=== PATIENT | female | born 1970 | race Caucasian/White ===

== ENCOUNTER 2017-05-29 15:50 | Inpatient (IN) | payer SELFPAY ==
[~2017-05-29] VITALS: Ht 160 cm; Wt 112.0 kg
[2017-05-29] MEDS ORDERED: ALBUTEROL FS 2.5 MG/3 ML VIAL.NEB ONE (16:07)
--- NOTE | 2017-05-29 16:10 | NUR ---
BBRA FROM URGENT CARE FOR SOB AND FLU LIKE SYMPTOMS X 5 DAYS. SATING AT 70'S RA. SEEN BY MD FOR EVAL. OTHER VSS. PT AAOX4. SAFETY AND COMFORT MEASURES PROVIDED. WILL MONITOR.
[2017-05-29] MEDS ORDERED: methylPREDNISolone SOD SUCC 125 MG/2ML VIAL ONE (16:23)
[2017-05-29] MEDS ORDERED: methylPREDNISolone SOD SUCC 125 MG/2ML VIAL IV ONE (16:30)
[2017-05-29] MEDS ORDERED: ALBUTEROL FS 2.5 MG/3 ML VIAL.NEB CONTNEB ONE (16:30)
[2017-05-29] MEDS ORDERED: IV NS 0.9% 1,000 ML BAG IV ONE (16:30)
--- NOTE | 2017-05-29 16:30 | NUR ---
RT AT BS. IV ACCESS STARTED. BLOOD DRAWN FOR LABS.
[2017-05-29 16:35] LABS: BASOPHILS % (AUTO) 0.5 % (0.0-2.0); HEMATOCRIT 44 % (33-45); HEMOGLOBIN 14.9 g/dL (11.5-14.8); LYMPHOCYTES # (AUTO) 0.7 /CMM (0.8-4.8); LYMPHOCYTES % (AUTO) 18.2 % (20.0-44.0); MEAN CORPUSCULAR HEMOGLOBIN 28 PG (26.0-33.0); MEAN CORPUSCULAR HGB CONC 34 g/dl (31.0-36.0); MEAN CORPUSCULAR VOLUME 83 fL (82-100); MONOCYTES # (AUTO) 0.2 /CMM (0.1-1.30); MONOCYTES % (AUTO) 6.7 % (2.0-12.0); NEUTROPHILS # (AUTO) 2.7 /CMM (1.8-8.9); NEUTROPHILS % (AUTO) 74.6 % (43.0-81.0); PLATELET COUNT (AUTO) 220 /CMM (150-450); RED BLOOD CELL COUNT(AUTO) 5.27 MIL/uL (4.0-5.2); WHITE BLOOD COUNT (AUTO) 3.7 K/uL (4.3-11.0)
[2017-05-29 16:54] LABS: ALBUMIN 3.4 g/dL (3.4-5.0); BILIRUBIN,DIRECT 0.1 mg/dL (0.0-0.2); BILIRUBIN,TOTAL 0.6 mg/dL (0.2-1.0); CALCIUM, SERUM 8.8 mg/dL (8.5-10.1); CREATININE 0.9 mg/dL (0.6-1.3); POTASSIUM 3.8 mmol/L (3.5-5.1); TOTAL PROTEIN, SERUM 8.7 g/dL (6.4-8.2)
[2017-05-29 16:57] LABS: INR 0.96 (0.87-1.13)
[2017-05-29 16:58] LABS: ABG PCO2 33.3 mmHg (35.0-45.0); ABG PO2 58.5 mmHg (75.0-100.0); AaDO2 188.4 mmHg; COHb 1.5 % (0.5-1.5); O2Hb 89.6 % (94.0-97.0); SITE, ABG Right Radial
[2017-05-29] MEDS ORDERED: CEFTRIAXONE 1GM BAG (ER ONLY) 50 ML IV ONE (17:00)
--- NOTE | 2017-05-29 17:13 | NUR ---
CALLED NURSING SUP. FOR TELE BED
--- NOTE | 2017-05-29 17:28 | NUR ---
CALLED , LEFT MESSAGE ON VOICEMAIL
--- NOTE | 2017-05-29 18:01 | NUR ---
TELE 103
--- NOTE | 2017-05-29 18:12 | NUR ---
REPORT GIVEN TO NILESH PARRA FOR [facility] TELE 103
--- NOTE | 2017-05-29 18:20 | NUR ---
RECEIVED REPORT FROM SHINGLE BOLT CUTTER.
--- NOTE | 2017-05-29 19:06 | NUR ---
DANITZA PAGED, ADITI RG ANALYSIS MANAGER
[2017-05-29 19:30] VITALS: BP 126/90
--- NOTE | 2017-05-29 19:30 | NUR ---
RAIL DIRECTOR OPENING NOTES: RECEIVED PT FROM EMERGENCY DPT. PT IS A/OX4. PT TO BE PLACED ON TELE BOX. PT PLACED ON 8LPM VIA MASK AND IS TOLERATING WELL. NO S/S OF DISTRESS NOTED AT THIS TIME. PT HAS IV ON R FOREARM #20G AND IS PATENT AND INTACT. PT TO BE STARTED ON IV FLUIDS. CALL LIGHT WITHIN PT'S REACH. PT ON SEMI-OCHOA'S POSITION. BED KEPT IN LOW, LOCKED POSITION, AND SIDE RAILS X2UP. WILL CONTINUE TO MONITOR PT.
--- NOTE | 2017-05-29 19:43 | NUR ---
TRANSFERRED PATIENT VIA ALS PROTOCOL, NO INCIDENT NOTED.
[2017-05-29] MEDS ORDERED: MAG HYDROX/AL HYDROX/SIMETH 30 ML UDC PO PRN (20:00)
[2017-05-29] MEDS ORDERED: Z GUARD REMEDY 2 OZ OINT TP PRN (20:00)
[2017-05-29] MEDS ORDERED: ONDANSETRON HCL/PF 4 MG/2 ML VIAL IVP PRN (20:00)
[2017-05-29] MEDS ORDERED: ACETAMINOPHEN 325 MG TABLET PO PRN (20:00)
[2017-05-29] MEDS: IV NS 0.9% 1,000 ML IV PRN (20:15)
[2017-05-29] MEDS: AZITHROMYCIN 500 MG in IV D5W 250 ML IV SCH (20:38)
[2017-05-29] MEDS: ENOXAPARIN SODIUM 40 MG/0.4 ML DISP.SYRIN SQ SCH (20:39)
--- NOTE | 2017-05-29 23:08 | NUR ---
CLOTH WORKER NOTES: TEACHER OF THE DEAF/HARD OF HEARING ARCENIO AT BEDSIDE.
[2017-05-29] MEDS ORDERED: IPRATROPIUM NEB FS 0.5 MG/2.5 ML AMPUL.NEB ONE (23:13)
[2017-05-29] MEDS ORDERED: ALBUTEROL FS 2.5 MG/0.5 ML VIAL.NEB ONE (23:13)
[2017-05-29] MEDS ORDERED: IPRATROPIUM NEB FS 0.5 MG/2.5 ML AMPUL.NEB NEB SCH (23:30)
[2017-05-29] MEDS ORDERED: ALBUTEROL FS 2.5 MG/0.5 ML VIAL.NEB NEB SCH (23:30)
[2017-05-30] VITALS: BP 113/71
[2017-05-30 00:25] LABS: ABG BASE EXCESS -2.3 mmol/L; ABG OXYGEN SATURATION 89.1 % (92.0-98.5); ABG PCO2 34.6 mmHg (35.0-45.0); ABG PH 7.413 (7.350-7.450); ABG PO2 56.9 mmHg (75.0-100.0); AaDO2 621.5 mmHg; COHb 0.4 % (0.5-1.5); MetHb 0.1 % (0.0-1.5); O2Hb 88.7 % (94.0-97.0); SITE, ABG Right Radial; VENT MODE, BG NRB
--- NOTE | 2017-05-30 00:31 | NUR ---
TRAY PACKER NOTES: SPOKE TO DR. ADITI RG AND HE SAID TO ORDER BMP STAT. TO NOTIFY HIM ABOUT RESULTS ONCCE THEY SHOW UP. Addendum: 05/30/17 at 0043 by HILLARY SPANGLER RN BNP
--- NOTE | 2017-05-30 00:47 | NUR ---
SENIOR BENEFITS ANALYST NOTES: URINE COLLECTED. TO BE COLLECTED BY LAB.
[2017-05-30] MEDS: ZOLPIDEM TARTRATE 5 MG TABLET PO PRN (00:54)
--- NOTE | 2017-05-30 00:55 | NUR ---
LAYOUT MAN NOTES: PT REQUESTED FOR SLEEPING PILL. PT WAS ADMINISTERED AMBIEN 5MG PO.
--- NOTE | 2017-05-30 01:30 | NUR ---
BIPAP SUGGESTED TO NILESH CAAL DUE TO POST ABG RESULTS. NO NEW ORDERS PER DR ADITI RG. WILL CONTINUE TO MONITOR.
--- NOTE | 2017-05-30 01:42 | NUR ---
PHERESIS SPECIALIST NOTES: NOTIFIED BNP RESULT TO DR. RG AND HE ORDERED ONE DOSE OF LASIX 40MG IVP.
[2017-05-30] MEDS ORDERED: FUROSEMIDE 40 MG/4 ML VIAL IV STA (01:43)
[2017-05-30] MEDS ORDERED: FUROSEMIDE 40 MG/4 ML VIAL ONE (01:49)
[2017-05-30] MEDS ORDERED: IPRATROPIUM NEB FS 0.5 MG/2.5 ML AMPUL.NEB ONE (03:27)
[2017-05-30] MEDS ORDERED: ALBUTEROL FS 2.5 MG/0.5 ML VIAL.NEB ONE (03:27)
[2017-05-30] MEDS: IPRATROPIUM NEB FS 0.5 MG/2.5 ML AMPUL.NEB NEB SCH ×5 (03:44→19:58)
[2017-05-30] MEDS: ALBUTEROL FS 2.5 MG/0.5 ML VIAL.NEB NEB SCH ×5 (03:44→19:58)
[2017-05-30 04:00] VITALS: BP 102/65
[2017-05-30 06:41] LABS: BASOPHILS % (AUTO) 0.1 % (0.0-2.0); HEMATOCRIT 39 % (33-45); HEMOGLOBIN 13.2 g/dL (11.5-14.8); LYMPHOCYTES # (AUTO) 0.4 /CMM (0.8-4.8); LYMPHOCYTES % (AUTO) 16.6 % (20.0-44.0); MEAN CORPUSCULAR HEMOGLOBIN 28 PG (26.0-33.0); MEAN CORPUSCULAR HGB CONC 34 g/dl (31.0-36.0); MEAN CORPUSCULAR VOLUME 83 fL (82-100); MONOCYTES # (AUTO) 0.3 /CMM (0.1-1.30); MONOCYTES % (AUTO) 10.9 % (2.0-12.0); NEUTROPHILS # (AUTO) 1.7 /CMM (1.8-8.9); NEUTROPHILS % (AUTO) 72.4 % (43.0-81.0); PLATELET COUNT (AUTO) 242 /CMM (150-450); RDW COEFFICIENT OF VARIATION 15.1 (11.5-15.0); WHITE BLOOD COUNT (AUTO) 2.3 K/uL (4.3-11.0)
--- NOTE | 2017-05-30 06:43 | NUR ---
LOOK OUT TOWER FIRE WATCHER CLOSING NOTES: ALL NEEDS WERE ATTENDED AND ANTICIPATED FOR. PT ON 15LPM VIA NON REBREATHER MASK. PT ON TELE BOX AND READING SHOWS SR 88. PT ON SEMI-OCHOA'S POSITION. PT ALSO HAS R FOREARM #20G AND IS BEING INFUSED WITH NS AT 75ML/HR. CALL LIGHT WITHIN PT'S REACH. BED KEPT IN LOW, LOCKED POSITION, AND SIDE RAILS X 2UP. WILL ENDORSE TO AM NURSE FOR VLADIMIR.
[2017-05-30 06:44] LABS: CREATININE 0.6 mg/dL (0.6-1.3); MAGNESIUM 2.1 mg/dL (1.8-2.4); PHOSPHORUS 4.1 mg/dL (2.5-4.9)
[2017-05-30 06:53] LABS: THYROID STIMULATING HORMONE 0.886 uIU/mL (0.358-3.74)
--- NOTE | 2017-05-30 07:15 | NUR ---
RN NOTES PATIENT ALERT AND ORIENTED X4, ON A 15LPM NON-REBREATHER MASK, DENIES PAIN AT THIS TIME. IVF INFUSING. NEEDS ATTENDED, CALL LIGHT WITHIN REACH, SAFETY MEASURES IN PLACED, WILL CONTINUE TO MONITOR.
[2017-05-30] MEDS ORDERED: ALBUTEROL FS 2.5 MG/0.5 ML VIAL.NEB NEB SCH (07:35)
[2017-05-30] MEDS ORDERED: IPRATROPIUM NEB FS 0.5 MG/2.5 ML AMPUL.NEB NEB SCH (07:35)
[2017-05-30 08:40] LABS: BAND % (MANUAL) 10 % (0.0-5.0); LYMPHOCYTES % (MANUAL) 14 % (16-48); MONOCYTES % (MANUAL) 5 % (0-11.0); NEUTROPHILS % (MANUAL) 71 (42-76)
[2017-05-30 09:13] LABS: ABG BASE EXCESS 1.5 mmol/L; ABG OXYGEN SATURATION 90.6 % (92.0-98.5); ABG PCO2 41.4 mmHg (35.0-45.0); ABG PH 7.419 (7.350-7.450); ABG PO2 61.8 mmHg (75.0-100.0); AaDO2 609.8 mmHg; COHb 0.3 % (0.5-1.5); MetHb 0.7 % (0.0-1.5); O2Hb 89.7 % (94.0-97.0); SITE, ABG Right Radial; VENT MODE, BG 15 LPM VIA NRB
[2017-05-30] MEDS: methylPREDNISolone SOD SUCC 125 MG/2ML VIAL IV SCH ×3 (09:32→17:41)
[2017-05-30] MEDS: IV NS 0.9% 1,000 ML IV PRN (12:56)
[2017-05-30] MEDS ORDERED: DEXTROSE 50%-WATER 50 ML DISP.SYRIN IV PRN (17:00)
[2017-05-30] MEDS ORDERED: MENTHOL/CETYLPYRD (CEPACOL) 1 LOZ LOZENGE PO PRN (17:00)
[2017-05-30] MEDS ORDERED: AZITHROMYCIN 500 MG in IV D5W 250 ML IV SCH (17:00)
[2017-05-30] MEDS: BLOOD SUGAR DIAGNOSTIC 1 EACH STRIP IN SCH ×2 (17:39→21:19)
[2017-05-30] MEDS: CEFTRIAXONE 2 G in IV D5W 100 ML IV SCH (18:02)
[2017-05-30] MEDS: INSULIN REGULAR, HUMAN 100 UNIT/ML 3 ML VIAL SQ PRN ×2 (18:04→21:24)
--- NOTE | 2017-05-30 19:10 | NUR ---
RN NOTES PATIENT ALERT AND ORIENTED X4, STILL ON O2 AT 15LPM VIA NRB MASK WITH O2 SAT BETWEEN 87-90%, NO SHORTNESS OF BREATH NOTED WHILE IN BED, BUT WHEN PATIENT WORKED WITH PHYSICAL THERAPY, PATIENT'S O2 DROPPED TO 85%, BUT PATIENT WAS STILL ASYMPTOMATIC. IVF INFUSING AND TOLERATING WELL, PATIENT DENIES PAIN OR DISCOMFORT, ALL DUE MEDICATIONS GIVEN, NO S/SX OF HYPO OR HYPERGLYCEMIA. NEEDS ATTENDED AND MET, CALL LIGHT WITHIN REACH, ENDORSED TO STREET OPENINGS INSPECTOR FOR VLADIMIR.
--- NOTE | 2017-05-30 19:30 | NUR ---
INSTRUMENT PERSON NOTE: PATIENT RESTING IN BED, NO ACUTE DISTRESS NOTED, FAMILY AT BEDSIDE. BREATHING EVEN AND UNLABORED, NO SOB NOTED AT THIS TIME. ON NON REBREATHER AT 15 LPM, O2 SAT 90%. TELE READING SR 90. NO S/S OF HYPER/HYPOGLYCEMIA NOTED. IV TO RFA IN PLACE, INFUSING NS AT 75 ML/HR. BED LOCKED AND IN LOWEST POSITION, CALL LIGHT IN REACH. WILL CONTINUE TO MONITOR.
[2017-05-30] MEDS: AZITHROMYCIN 500 MG in IV D5W 250 ML IV SCH (20:35)
[2017-05-30] MEDS: ENOXAPARIN SODIUM 40 MG/0.4 ML DISP.SYRIN SQ SCH (21:17)
--- NOTE | 2017-05-30 21:30 | NUR ---
TACK COVERER NOTE: PATIENT BLOOD SUGAR LEVEL 341 MG/DL, PATIENT TO RECEIVE 8 UNITS OF INSULIN PER SLIDING SCALE. NO S/S OF HYPERGLYCEMIA NOTED. WILL CONTINUE TO MONITOR.
[2017-05-31] MEDS: ZOLPIDEM TARTRATE 5 MG TABLET PO PRN ×2 (00:25→23:55)
--- NOTE | 2017-05-31 00:30 | NUR ---
SHEET CUTTER NOTE: PATIENT REQUEST FOR SLEEPING MEDICATIONS. AMBIEN 5MG ORAL GIVEN PER MD ORDER. WILL CONTINUE TO MONITOR.
[2017-05-31] MEDS: IV NS 0.9% 1,000 ML IV PRN ×2 (05:41→23:56)
[2017-05-31 06:33] LABS: BASOPHILS % (AUTO) 0.3 % (0.0-2.0); HEMATOCRIT 38 % (33-45); LYMPHOCYTES # (AUTO) 0.6 /CMM (0.8-4.8); LYMPHOCYTES % (AUTO) 14.9 % (20.0-44.0); MEAN CORPUSCULAR HEMOGLOBIN 29 PG (26.0-33.0); MEAN CORPUSCULAR HGB CONC 34 g/dl (31.0-36.0); MEAN CORPUSCULAR VOLUME 83 fL (82-100); MONOCYTES # (AUTO) 0.6 /CMM (0.1-1.30); MONOCYTES % (AUTO) 12.8 % (2.0-12.0); NEUTROPHILS # (AUTO) 3.1 /CMM (1.8-8.9); PLATELET COUNT (AUTO) 260 /CMM (150-450); RDW COEFFICIENT OF VARIATION 14.8 (11.5-15.0); RED BLOOD CELL COUNT(AUTO) 4.57 MIL/uL (4.0-5.2); WHITE BLOOD COUNT (AUTO) 4.4 K/uL (4.3-11.0)
--- NOTE | 2017-05-31 06:40 | NUR ---
SALES SUPPORT TECHNICIAN NOTE: PATIENT SITTING UP IN BED, NO ACUTE DISTRESS NOTED. BREATHING EVEN AND UNLABORED, NO SOB NOTED AT THIS TIME. ON NON REBREATHER AT 15 LPM, O2 SAT 90'S%. TELE READING SR 80. PATIENT BLOOD SUGAR LEVEL 298MG/DL, TO RECEIVE 6 UNITS OF INSULIN PER SLIDING SCALE, NO S/S OF HYPER/HYPOGLYCEMIA NOTED. IV TO RFA IN PLACE, INFUSING NS AT 75 ML/HR. BED LOCKED AND IN LOWEST POSITION, CALL LIGHT IN REACH. WILL ENDORSE TO DAY NURSE TO CONTINUE WITH PLAN OF CARE.
[2017-05-31] MEDS: BLOOD SUGAR DIAGNOSTIC 1 EACH STRIP IN SCH ×4 (06:41→22:37)
[2017-05-31] MEDS: INSULIN REGULAR, HUMAN 100 UNIT/ML 3 ML VIAL SQ PRN ×4 (06:43→21:46)
[2017-05-31 06:45] LABS: CREATININE 0.6 mg/dL (0.6-1.3); POTASSIUM 4.2 mmol/L (3.5-5.1)
--- NOTE | 2017-05-31 07:30 | NUR ---
RN OPENING NOTES RECEIVED PT. PT IS STABLE AND RESTING IN BED. A/OX4. PT IS ON NON REBREATHER AT 15L. BREATHING IS EVEN BUT LABORED, HOWEVER O2 SAT REMAINS ABOVE 93%. PT HAS NO C/O PAIN AT THIS TIME. TELE MONITOR CHECKED, CURRENTLY SR. IV ACCESS LOCATED ON RIGHT FOREARM, 20G RUNNING NS AT 75 ML/HR. SAFETY MEASURES IN PLACE, CALL LIGHT WITHIN REACH. WILL CONTINUE TO MONITOR.
[2017-05-31] MEDS: IPRATROPIUM NEB FS 0.5 MG/2.5 ML AMPUL.NEB NEB SCH ×4 (07:35→19:44)
[2017-05-31] MEDS: ALBUTEROL FS 2.5 MG/0.5 ML VIAL.NEB NEB SCH ×4 (07:35→19:44)
[2017-05-31 08:00] VITALS: BP 124/70
[2017-05-31] MEDS: methylPREDNISolone SOD SUCC 125 MG/2ML VIAL IV SCH ×3 (09:03→17:28)
[2017-05-31] MEDS: LOSARTAN POTASSIUM 50 MG TABLET PO SCH (11:15)
[2017-05-31 13:48] LABS: ABG BASE EXCESS 4.7 mmol/L; ABG OXYGEN SATURATION 92.1 % (92.0-98.5); ABG PCO2 44.9 mmHg (35.0-45.0); ABG PH 7.437 (7.350-7.450); ABG PO2 65.2 mmHg (75.0-100.0); AaDO2 458.1 mmHg; COHb 0.1 % (0.5-1.5); MetHb 0.3 % (0.0-1.5); O2Hb 91.7 % (94.0-97.0); SITE, ABG Right Radial; VENT MODE, BG NRB
[2017-05-31 16:00] VITALS: BP 145/84
[2017-05-31] MEDS: CEFTRIAXONE 2 G in IV D5W 100 ML IV SCH (17:28)
--- NOTE | 2017-05-31 18:50 | NUR ---
RN CLOSING NOTES PT IN BED RESTING. NO S/S OF SOB OR RESP DISTRESS. NO C/O PAIN AT THIS TIME. PER MD ORDER, PT TO START ON LEVEMIR FOR GLUCOSE CONTROL. ALL PT NEEDS ANTICIPATED AND MET. SAFETY MEASURES IN PLACE. CALL LIGHT WITHIN REACH. WILL ENDORSE TO [employer] DEVELOPER FOR VLADIMIR.
--- NOTE | 2017-05-31 19:30 | NUR ---
MS RN OPENING NOTES RECEIVED PT IN BED ALERT,AWAKE,VERBALLY RESPONSIVE. ON O2 VIA NONREBREATHER MASK AT 15L/MIN, RESPIRATIONS EVEN UNLABORED, NO SOB NOTED. IV SITE RT FA INTACT,PATENT.DENIES ANY PAIN OR DISCOMFORT AT THIS TIME. CALL LIGHT WITHIN REACH.KEPT CLEAN AND COMFORTABLE.ATTENDED ALL NEEDS.WILL CONTINUE TO MONITOR ACCORDINGLY.
[2017-05-31] MEDS: AZITHROMYCIN 500 MG in IV D5W 250 ML IV SCH (20:35)
[2017-05-31] MEDS: ENOXAPARIN SODIUM 40 MG/0.4 ML DISP.SYRIN SQ SCH (20:39)
--- NOTE | 2017-05-31 21:30 | NUR ---
MS RN NOTES PT NOTED WITH BLOOD GLUCOSE 421, ADMINISTERED 10 UNITS REGULAR INSULIN ORDERED PER SLIDING SCALE, 15 UNITS LANTUS GIVEN. NOTIFIED EVELIA GILLIS. PT ALERT,AWAKE,VERBALLY RESPONSIVE.DENIES ANY PAIN OR DISCOMFORT AT THIS TIME.RESPIRATIONS EVEN, UNLABORED.WILL CONTINUE TO MONITOR ACCORDINGLY.
[2017-05-31 22:00] VITALS: BP 134/90
[2017-05-31] MEDS ORDERED: INSULIN GLARGINE, 100 UNIT/ML CARTRIDGE SQ SCH (22:00)
--- NOTE | 2017-05-31 22:00 | NUR ---
MS RN NOTES BLOOD GLUCOSE RECHECKED 388, PT AWAKE,ALERT,RESPONSIVE. CALL LIGHT WITHIN REACH.ATTENDED ALL NEEDS.WILL CONTINUE TO MONITOR ACCORDINGLY.
[2017-05-31] MEDS ORDERED: INSULIN DETEMIR 100 UNIT/ML CARTRIDGE SQ SCH (22:30)
[2017-06-01 04:03] VITALS: BP 143/80
[2017-06-01] MEDS: INSULIN REGULAR, HUMAN 100 UNIT/ML 3 ML VIAL SQ PRN ×4 (06:19→21:35)
[2017-06-01] MEDS: BLOOD SUGAR DIAGNOSTIC 1 EACH STRIP IN SCH ×4 (06:20→21:32)
--- NOTE | 2017-06-01 06:29 | NUR ---
RN CLOSING NOTES PT IN BED AWAKE,ALERT,VERBALLY RESPONSIVE, ON O2 VIA NONREBREATHER MASK AT 15 L/MIN, O2 SAT 93%. DENIES ANY PAIN OR DISCOMFORT AT THIS TIME. IV SITE INTACT,PATENT. BLOOD GLUCOSE 213 AT THIS TIME, GIVEN 4 UNITS REGULAR INSULIN. CALL LIGHT WITHIN REACH.KEPT CLEAN AND COMFORTABLE.ATTENDED ALL NEEDS. WILL CONTINUE TO MONITOR ACCORDINGLY
--- NOTE | 2017-06-01 07:10 | NUR ---
RN NOTES PT IS SITTING UP IN BED, RESTING COMFORTABLY. PT ON 15L O2 VIA NONREBREATHER MASK, RESPIRATIONS ARE EVEN AND UNLABORED. IV ON RFA RUNNING NS @ 75ML/HR. SAFETY MEASURES ARE IN PLACE, CALL LIGHT IS IN REACH. WILL CONTINUE TO MONITOR.
--- NOTE | 2017-06-01 07:15 | NUR ---
RN NOTES PT IS LAYING DOWN IN BED, CONFUSED. PT HAS SOFT WRIST RESTRAINTS ON. PT ON RA, RESPIRATIONS ARE EVEN AND UNLABORED. IV ON L HAND INTACT AND SL. G-TUBE IS IN TACT AND RUNNING FIBERSOURCE @ 60ML/HR. SAFETY MEASURES ARE IN PLACE, CALL LIGHT IS IN REACH. WILL CONTINUE TO MONITOR. Addendum: 06/01/17 at 0740 by MARY KAY WOLFE RN DISREGARD RN NOTE, WRONG PATIENT
[2017-06-01 08:00] VITALS: BP 136/86
[2017-06-01] MEDS: IPRATROPIUM NEB FS 0.5 MG/2.5 ML AMPUL.NEB NEB SCH ×4 (08:06→20:07)
[2017-06-01] MEDS: ALBUTEROL FS 2.5 MG/0.5 ML VIAL.NEB NEB SCH ×4 (08:06→20:07)
[2017-06-01] MEDS: methylPREDNISolone SOD SUCC 125 MG/2ML VIAL IV SCH ×2 (08:46→17:00)
[2017-06-01] MEDS: LOSARTAN POTASSIUM 50 MG TABLET PO SCH (08:46)
[2017-06-01 16:00] VITALS: BP 141/82
[2017-06-01] MEDS: CEFTRIAXONE 2 G in IV D5W 100 ML IV SCH (18:04)
--- NOTE | 2017-06-01 18:23 | NUR ---
RT NOTE PT PLACED ON HIGH FLOW NASAL CANNULA PER MD VERBAL ORDER. RN NOTIFIED. MD INSTRUCTED TO KEEP SPO2 ABOVE 94%. PT AWAKE AND ALERT. PT STABLE. NO DISTRESS NOTED. WILL CONTINUE TO MONITOR. Addendum: 06/01/17 at 1824 by ORTEGA CASTILLO RT Amended: Links added.
--- NOTE | 2017-06-01 18:32 | NUR ---
RN NOTES PT IS SITTING UP IN BED, RESTING COMFORTABLY. PT ON HIGH FLOW NASAL CANNULA, SATING 94%. IV ON RFA INTACT AND RUNNING NS @ 75ML/HR. ALL MEDS WERE GIVEN ORDERED AND PT NEEDS MET. 1730 ACCUCHECK WAS 299, 6 UNITS GIVEN ORDERED. SAFETY MEASURES ARE IN PLACE, CALL LIGHT IS IN REACH. WILL ENDORSE TO CUSTOMS EXAMINER RN FOR CONTINUITY OF CARE.
--- NOTE | 2017-06-01 19:30 | NUR ---
RN/YOBANY NOTES: RECEIVED PT. IN BED W/ HOB ELEVATED W/ NON REBREATHER MASK AT 15 L O2 SAT 92%. A/O X 4. ON TELE MONITOR W/ SR. PT. IS CONTINENT OF B/B. ABLE TO AMBULATE. DENIES ANY C/O CHEST PAIN OR SOB AT THIS TIME. HAS IVF TO RFA PATENT AND INTACT W/ NO S/S OF INFECTION/INFILTRATION NOTED. ALL NEEDS MEET. BED LOCKED AND IN LOW POSITION. CALL LIGHT W/ REACH. WILL CONTINUE TO MONITOR.
[2017-06-01 20:00] VITALS: BP 140/82
[2017-06-01] MEDS: AZITHROMYCIN 500 MG in IV D5W 250 ML IV SCH (21:25)
[2017-06-01] MEDS: ENOXAPARIN SODIUM 40 MG/0.4 ML DISP.SYRIN SQ SCH (21:27)
[2017-06-01] MEDS: INSULIN GLARGINE, 100 UNIT/ML CARTRIDGE SQ SCH (21:36)
[2017-06-01] MEDS ORDERED: INSULIN GLARGINE, 100 UNIT/ML CARTRIDGE SQ SCH (22:00)
[2017-06-01] MEDS: IV NS 0.9% 1,000 ML IV PRN (23:22)
[2017-06-01] MEDS: ZOLPIDEM TARTRATE 5 MG TABLET PO PRN (23:26)
[2017-06-02] VITALS: BP 126/84
[2017-06-02 04:00] VITALS: BP 122/62
--- NOTE | 2017-06-02 07:11 | NUR ---
RN/YOBANY NOTES: NO ACUTE CHANGES NOTED DURING THE SHIFT. REPORT GIVEN TO NEXT SHIFT FOR VLADIMIR.
--- NOTE | 2017-06-02 08:00 | NUR ---
YOBANY RN NOTE PATIENT IN BED , ALL NEEDS ATTENDED, ON TELE MONITOR, SR ON NONREBREATHER MASK 15 L ,ON IVF ORDERED, HL ON RT RT WIST INTACT, NO S]S INFECTION NOTED , BED IN LOWEST AND LOCKED POSITION , WILL CONT TO MONITOR CLOSELY Addendum: 06/02/17 at 0831 by TIM THOMAS RN ON BREATHING TX BY RT NOT IN ACUTE DISTRESS
[2017-06-02] MEDS: ALBUTEROL FS 2.5 MG/0.5 ML VIAL.NEB NEB SCH ×4 (08:07→19:57)
[2017-06-02] MEDS: IPRATROPIUM NEB FS 0.5 MG/2.5 ML AMPUL.NEB NEB SCH ×4 (08:07→19:57)
[2017-06-02] MEDS: methylPREDNISolone SOD SUCC 125 MG/2ML VIAL IV SCH ×2 (08:15→17:19)
[2017-06-02] MEDS: OSELTAMIVIR PHOSPHATE 75 MG CAPSULE PO SCH ×2 (08:17→17:19)
[2017-06-02] MEDS: LOSARTAN POTASSIUM 50 MG TABLET PO SCH (08:17)
[2017-06-02] MEDS: BLOOD SUGAR DIAGNOSTIC 1 EACH STRIP IN SCH ×4 (08:17→21:21)
[2017-06-02] MEDS: INSULIN REGULAR, HUMAN 100 UNIT/ML 3 ML VIAL SQ PRN ×3 (08:23→17:34)
[2017-06-02 08:27] VITALS: BP 148/98
[2017-06-02 12:00] VITALS: BP 130/78
--- NOTE | 2017-06-02 12:00 | NUR ---
YOBANY GALLOWAY NOTE UNABLE TO FEED PAINT STILL ASLEEP DR HANSON AWARE Addendum: 06/02/17 at 1431 by TIM THOMAS RN WRONG CHART WRONG ENTRY
[2017-06-02] MEDS ORDERED: DEXTROSE 50%-WATER 50 ML DISP.SYRIN IV PRN (13:00)
--- NOTE | 2017-06-02 14:31 | NUR ---
YOBANY RN NOTE SPOKE WITH MAXI RN CUTTER HELPER AWARE THAT BLOOD SUGAR 350 MG\DL AT 1300 ORDERED AGGRESSIVE SLIDING SCALE
--- NOTE | 2017-06-02 14:32 | NUR ---
ISABEL RN NOTE PER MAXI OK TO GIVE FLU VACCINA UPON DISCHARGE
[2017-06-02 16:00] VITALS: BP 128/94
--- NOTE | 2017-06-02 16:07 | NUR ---
YOBANY RN NOTE PER DR SANTIAGO ID OK TO PLACE ON ISOLATION FOR INFLUENZA
[2017-06-02] MEDS: CEFTRIAXONE 2 G in IV D5W 100 ML IV SCH (17:28)
--- NOTE | 2017-06-02 19:30 | NUR ---
YOBANY RN INITIAL NOTES RECEIVED PATIENT AWAKE A/OX4, ABLE TO MAKE NEEDS KNOWN. DENIES PAIN OR DISCOMFORT. DENIES SOB. STATES SHE HAS MINIMAL SOB WHEN WALKING TO THE BATHROOM, BUT BETTER THAN IT WAS BEFORE. ON [id number] NON-REBREATHER. SKIN WARM AND DRY TO TOUCH. ON TELE MONITOR SR 73. WITH REUBEN MIDLINE PATENT AND INTACT. SIDE RAILS UP AND LOCKED. BED KEPT AT LOWEST POSITION. CALL LIGHT KEPT WITHIN EASY REACH. WILL CONTINUE TO MONITOR.
[2017-06-02 20:00] VITALS: BP 125/84
[2017-06-02] MEDS: AZITHROMYCIN 500 MG in IV D5W 250 ML IV SCH (21:18)
[2017-06-02] MEDS: INSULIN GLARGINE, 100 UNIT/ML CARTRIDGE SQ SCH (21:22)
[2017-06-02] MEDS: ENOXAPARIN SODIUM 40 MG/0.4 ML DISP.SYRIN SQ SCH (21:23)
[2017-06-02] MEDS: *INSULIN REGULAR(HUMULIN R)HUM 100 UNIT/ML VIAL SQ PRN (21:23)
[2017-06-02] MEDS: ZOLPIDEM TARTRATE 5 MG TABLET PO PRN (23:35)
[2017-06-03] VITALS: BP 128/78
[2017-06-03 04:00] VITALS: BP 107/66
--- NOTE | 2017-06-03 05:30 | NUR ---
YOBANY RN NOTES OXYGEN TITRATED TO [id number] SIMPLE MASK, SPO2 94%. PATIENT DENIES SOB AT THIS TIME. NON-DIAPHORETIC. STATES SHE FEELS FINE. WILL CONTINUE TO MONITOR.
--- NOTE | 2017-06-03 07:14 | NUR ---
TELE TD RN NOTES RECEIVED PT ON BED,ALERT ORIENTED X4. ON O2 MASK 12LPM. TOLERATING WELL. NO SIGN OF RESPIRATORY DISTRESS. ON RUFFLING HEMMER AUTOMATIC SR. IV ACCESS ON REUBEN MIDLINE TKO. HEAD OF BED ELEVATED. SIDE RAILS UP. CALL LIGHT IS WITHIN REACH. WILL CONTINUE TO MONITOR PT CLOSELY.
--- NOTE | 2017-06-03 07:27 | NUR ---
YOBANY RN CLOSING NOTES NO SIGNIFICANT CHANGES OVERNIGHT. ALL NEEDS ANTICIPATED AND MET. NO RESPIRATORY DISTRESS NOTED, ON 47ULTE3 VIA SIMPLE MASK. SKIN WARM AND DRY TO TOUCH. HOB ELEVATED. ISOLATION PRECAUTIONS OBSERVED. SIDE RAILS UP AND LOCKED. BED KEPT AT LOWEST POSITION. CALL LIGHT KEPT WITHIN EASY REACH. CONTINUITY OF CARE ENDORSED TO AM NURSE.
[2017-06-03] MEDS: BLOOD SUGAR DIAGNOSTIC 1 EACH STRIP IN SCH ×4 (07:43→21:39)
[2017-06-03] MEDS: INSULIN REGULAR, HUMAN 100 UNIT/ML 3 ML VIAL SQ PRN ×3 (07:45→17:29)
[2017-06-03] MEDS: ALBUTEROL FS 2.5 MG/0.5 ML VIAL.NEB NEB SCH ×4 (07:50→20:19)
[2017-06-03] MEDS: IPRATROPIUM NEB FS 0.5 MG/2.5 ML AMPUL.NEB NEB SCH ×4 (07:50→20:19)
[2017-06-03 08:00] VITALS: BP_SYST 107; BP_SYST 125; BP_DIAS 66; BP_DIAS 87
[2017-06-03] MEDS: methylPREDNISolone SOD SUCC 125 MG/2ML VIAL IV SCH ×2 (08:36→17:26)
[2017-06-03] MEDS: OSELTAMIVIR PHOSPHATE 75 MG CAPSULE PO SCH ×2 (08:36→17:24)
[2017-06-03] MEDS: LOSARTAN POTASSIUM 50 MG TABLET PO SCH (08:36)
[2017-06-03 12:00] VITALS: BP_SYST 129; BP_DIAS 22; BP_DIAS 92
[2017-06-03] MEDS: INSULIN GLARGINE, 100 UNIT/ML CARTRIDGE SQ SCH ×2 (12:34→17:25)
[2017-06-03 16:00] VITALS: BP_SYST 113; BP_SYST 129; BP_DIAS 90; BP_DIAS 92
[2017-06-03] MEDS: CEFTRIAXONE 2 G in IV D5W 100 ML IV SCH (17:22)
--- NOTE | 2017-06-03 19:30 | NUR ---
YOBANY RN INITIAL NOTE PT RECEIVED SITTING UP IN BED. A/O X4 AND ABLE TO VERBALIZE NEEDS. ON 10 L OF O2 VIA FACE MASK , SATURATING 94% AND TOLERATING WELL. NO C/O PAIN OR SOB. BREATHING REGUALR, EVEN AND UNLABORED. TELE- SINUS RHYTHM 85. IV RA #22 CLEAN, DRY, AND FLUSHING WELL. WHEN GOING TO THE RESTROOM PT BECOMES TACHY ON THE MONITOR. NO C/O PALPITATIONS, DIZZINESS OR SOB DURING AMBULATION. CALL LIGHT WITHIN REACH. WILL CONTINUE TO MONITOR.
--- NOTE | 2017-06-03 19:47 | NUR ---
TD RN NOTES NO ACUTE CHANGES NOTED DURING THE SHIFT. PROVIDED COMFORT AND SAFETY. DUE MEDS GIVEN. ENDORSED TO THE PM NURSE FOR VLADIMIR.
[2017-06-03 20:00] VITALS: BP 119/80
[2017-06-03] MEDS ORDERED: AZITHROMYCIN 250 MG TABLET PO SCH (21:00)
[2017-06-03] MEDS: ENOXAPARIN SODIUM 40 MG/0.4 ML DISP.SYRIN SQ SCH (21:43)
[2017-06-03] MEDS: *INSULIN REGULAR(HUMULIN R)HUM 100 UNIT/ML VIAL SQ PRN (21:44)
[2017-06-03 22:13] LABS: *MYCOPLASMA PNEUMONIAE IgG 148 U/mL (0-99); *MYCOPLASMA PNEUMONIAE IgM <770 U/mL (0-769)
[2017-06-03] MEDS: ZOLPIDEM TARTRATE 5 MG TABLET PO PRN (23:41)
[2017-06-04] VITALS: BP 92/61
[2017-06-04 04:00] VITALS: BP 115/69
[2017-06-04] MEDS: BLOOD SUGAR DIAGNOSTIC 1 EACH STRIP IN SCH ×4 (06:50→22:05)
[2017-06-04] MEDS: INSULIN REGULAR, HUMAN 100 UNIT/ML 3 ML VIAL SQ PRN ×3 (06:54→17:26)
--- NOTE | 2017-06-04 07:22 | NUR ---
YOBANY RN CLOSING NOTE PT REMAINED STABLE DURING SHIFT. NO C/O PAIN OR DISCOMFORT NOTED. NEW IV STARTED ON LEFT HAND #20 AND FLUSHING WELL. ALL NEEDS ATTENDED TO PROMPTLY. O2 SATURATION MAINTAINED >92% VIA FACE MASK THROUGHOUT THE SHIFT. CALL LIGHT WITHIN REACH. WILL ENDORSE TO NEXT SHIFT FOR CONTINUITY OF CARE.
[2017-06-04 08:00] VITALS: BP 106/70
[2017-06-04] MEDS: ALBUTEROL FS 2.5 MG/0.5 ML VIAL.NEB NEB SCH ×4 (08:16→19:46)
[2017-06-04] MEDS: IPRATROPIUM NEB FS 0.5 MG/2.5 ML AMPUL.NEB NEB SCH ×4 (08:16→19:46)
[2017-06-04] MEDS: methylPREDNISolone SOD SUCC 125 MG/2ML VIAL IV SCH (08:17)
[2017-06-04] MEDS: OSELTAMIVIR PHOSPHATE 75 MG CAPSULE PO SCH ×2 (08:18→17:20)
[2017-06-04] MEDS: INSULIN GLARGINE, 100 UNIT/ML CARTRIDGE SQ SCH ×2 (08:18→17:22)
[2017-06-04] MEDS: LOSARTAN POTASSIUM 50 MG TABLET PO SCH (08:18)
--- NOTE | 2017-06-04 10:33 | NUR ---
RN YOBANY NOTE PT TITRATED TO NC 6L FROM MASK 10L. PATIENT DOES NOT C/O SOB OR PAIN. SPO2 92%. PATIENT WANTS TO STAY ON NC PATIENT STATES IT'S COMFORTABLE AND WOULD LIKE TO STAY ON NASAL CANNULA. PATIENT IS FORMER SMOKER. EDUCATED PATIENT ON IMPORTANCE OF REPORTING SOB. OR TROUBLE BREATHING. PATIENT AGREED.
[2017-06-04 16:00] VITALS: BP 111/69
[2017-06-04 17:09] LABS: LEGIONELLA PNEUMOPHILIA AB <0.91 OD ratio (0.00-0.90)
[2017-06-04] MEDS: CEFTRIAXONE 2 G in IV D5W 100 ML IV SCH (17:13)
--- NOTE | 2017-06-04 19:30 | NUR ---
MS RN INITIAL NOTE PT RECEIVED SITTING UP. A/O X4 AND ABLE TO VERBALIZE NEEDS. ON 6L OF 02 AND SATURATING 92%. BREATHING REGULAR AND UNLABORED. IV L HAND #20 CLEAN, DRY, PATENT AND FLUSHING WELL. NO C/O PAIN OR DISCOMFORT NOTED. CALL LIGHT WITHIN REACH. WILL CONTINUE TO MONITOR.
[2017-06-04 20:00] VITALS: BP 139/66
[2017-06-04] MEDS: ENOXAPARIN SODIUM 40 MG/0.4 ML DISP.SYRIN SQ SCH (22:05)
[2017-06-04] MEDS: *INSULIN REGULAR(HUMULIN R)HUM 100 UNIT/ML VIAL SQ PRN (22:06)
[2017-06-04] MEDS: ZOLPIDEM TARTRATE 5 MG TABLET PO PRN (23:27)
--- NOTE | 2017-06-05 03:00 | NUR ---
MS RN NOTE GAVE REPORT TO JEFFREY GALLOWAY FOR CONTINUITY OF CARE
--- NOTE | 2017-06-05 03:00 | NUR ---
ms/rn notes RECEIVED REPORT FROM YOBANY RN LOU FOR VLADIMIR. PATIENT ASLEEP, RESPIRATIONS EVEN AND UNLABORED. WILL CONTINUE TO MONITOR. WILL CONTINUE TO MONITOR AND PROVIDE CARE.
[2017-06-05 04:00] VITALS: BP 139/66
--- NOTE | 2017-06-05 07:05 | NUR ---
RN INITIAL NOTE PATIENT RECEIVED IN BED. PT IS AWAKE, ALERT AND ORIENTED. ABLE TO MAKE NEEDS KNOWN.. NO S/S OF PAIN OR DISCOMFORT. RESPIRATIONS ARE EVEN AND UNLABORED. NO S/S OF RESPIRATORY DISTRESS OR SOB. SATING WELL ON 6L NASAL CANULA. SKIN IS WARM AND DRY TO TOUCH. IV SITE FLUSHED, PATENT. SAFETY PRECAUTIONS IMPLEMENTED: BED IN LOCKED, LOW POSITION WITH TWO SIDE RAILS UP. CALL LIGHT AND BELONGINGS WITHIN EASY REACH. WILL CONTINUE TO MONITOR.
[2017-06-05] MEDS: ALBUTEROL FS 2.5 MG/0.5 ML VIAL.NEB NEB SCH ×4 (07:19→20:19)
[2017-06-05] MEDS: IPRATROPIUM NEB FS 0.5 MG/2.5 ML AMPUL.NEB NEB SCH ×4 (07:19→20:19)
[2017-06-05] MEDS: BLOOD SUGAR DIAGNOSTIC 1 EACH STRIP IN SCH ×4 (07:30→21:07)
[2017-06-05 08:00] VITALS: BP 116/70
[2017-06-05] MEDS: methylPREDNISolone SOD SUCC 40 MG/ML VIAL IV SCH (08:49)
[2017-06-05] MEDS: LOSARTAN POTASSIUM 50 MG TABLET PO SCH (08:49)
[2017-06-05] MEDS: OSELTAMIVIR PHOSPHATE 75 MG CAPSULE PO SCH ×2 (08:50→18:33)
[2017-06-05] MEDS: *INSULIN REGULAR(HUMULIN R)HUM 100 UNIT/ML VIAL SQ PRN ×2 (08:52→18:27)
[2017-06-05] MEDS: INSULIN GLARGINE, 100 UNIT/ML CARTRIDGE SQ SCH ×2 (08:53→18:26)
--- NOTE | 2017-06-05 09:30 | NUR ---
RN NOTE PER DR CHANEL, PATIENT'S O2 REDUCED TO 2L, ABG ORDERED FOR ONE HOUR LATER.
[2017-06-05 10:34] LABS: ABG BASE EXCESS 4.1 mmol/L; ABG OXYGEN SATURATION 93.5 % (92.0-98.5); ABG PH 7.464 (7.350-7.450); ABG PO2 69.7 mmHg (75.0-100.0); AaDO2 82.7 mmHg; COHb 0.6 % (0.5-1.5); MetHb 0.4 % (0.0-1.5); O2Hb 92.6 % (94.0-97.0); SITE, ABG Right Radial; VENT MODE, BG nasal cannula
[2017-06-05] MEDS: INSULIN REGULAR, HUMAN 100 UNIT/ML 3 ML VIAL SQ PRN ×2 (12:55→21:06)
[2017-06-05 16:00] VITALS: BP 107/78
[2017-06-05] MEDS: CEFTRIAXONE 2 G in IV D5W 100 ML IV SCH (18:25)
[2017-06-05 20:00] VITALS: BP 111/62
[2017-06-05] MEDS: ENOXAPARIN SODIUM 40 MG/0.4 ML DISP.SYRIN SQ SCH (21:07)
[2017-06-05] MEDS: ZOLPIDEM TARTRATE 5 MG TABLET PO PRN (23:04)
[2017-06-06 04:00] VITALS: BP 97/56
[2017-06-06] MEDS: IPRATROPIUM NEB FS 0.5 MG/2.5 ML AMPUL.NEB NEB SCH ×4 (07:10→19:46)
[2017-06-06] MEDS: ALBUTEROL FS 2.5 MG/0.5 ML VIAL.NEB NEB SCH ×4 (07:10→19:46)
--- NOTE | 2017-06-06 07:34 | NUR ---
RN NOTES RECEIVED PT FORM ORACLE APPLICATION ARCHITECT, RESTING IN BED. A&0X3, ON 2L NC SATING WELL NO SOB OR DISTRESS L HAND 2OG IV SITE INTACT NO IVF. NO COMPLAINTS OF PAIN. BED LOCKED AND IN LOWEST POSITION, CALL LIGHT WITHIN REACH, SIDE RAILS UPX3, WILL CONT TO MAGDALENE
[2017-06-06] MEDS: BLOOD SUGAR DIAGNOSTIC 1 EACH STRIP IN SCH ×4 (07:54→21:48)
[2017-06-06] MEDS: *INSULIN REGULAR(HUMULIN R)HUM 100 UNIT/ML VIAL SQ PRN ×2 (07:54→11:57)
[2017-06-06 08:00] VITALS: BP 108/63
[2017-06-06] MEDS: LOSARTAN POTASSIUM 50 MG TABLET PO SCH (08:34)
[2017-06-06] MEDS: methylPREDNISolone SOD SUCC 40 MG/ML VIAL IV SCH (08:34)
[2017-06-06] MEDS: OSELTAMIVIR PHOSPHATE 75 MG CAPSULE PO SCH ×2 (08:35→16:37)
[2017-06-06] MEDS: INSULIN GLARGINE, 100 UNIT/ML CARTRIDGE SQ SCH ×2 (08:35→17:58)
[2017-06-06 16:00] VITALS: BP 109/73
[2017-06-06] MEDS: CEFTRIAXONE 2 G in IV D5W 100 ML IV SCH (17:58)
--- NOTE | 2017-06-06 18:36 | NUR ---
RN NOTES PT REMAINED IN STABLE CONDITION THROUGHOUT THE SHIFT. NO SIGNIFICANT CHANGES NOTED. ALL NEEDS MET. WILL ENDORSE TO ONCOMING SHIFT.
[2017-06-06 20:00] VITALS: BP 98/62
[2017-06-06] MEDS: ENOXAPARIN SODIUM 40 MG/0.4 ML DISP.SYRIN SQ SCH (20:45)
[2017-06-06] MEDS: INSULIN REGULAR, HUMAN 100 UNIT/ML 3 ML VIAL SQ PRN (21:55)
[2017-06-07] MEDS: ZOLPIDEM TARTRATE 5 MG TABLET PO PRN (00:09)
[2017-06-07 04:00] VITALS: BP 98/59
[2017-06-07 08:00] VITALS: BP 127/74
[2017-06-07] MEDS: BLOOD SUGAR DIAGNOSTIC 1 EACH STRIP IN SCH ×2 (08:00→13:57)
[2017-06-07] MEDS: IPRATROPIUM NEB FS 0.5 MG/2.5 ML AMPUL.NEB NEB SCH ×3 (08:27→15:33)
[2017-06-07] MEDS: ALBUTEROL FS 2.5 MG/0.5 ML VIAL.NEB NEB SCH ×3 (08:27→15:33)
[2017-06-07] MEDS: methylPREDNISolone SOD SUCC 40 MG/ML VIAL IV SCH (09:02)
[2017-06-07] MEDS: LOSARTAN POTASSIUM 50 MG TABLET PO SCH (09:04)
[2017-06-07] MEDS: INSULIN REGULAR, HUMAN 100 UNIT/ML 3 ML VIAL SQ PRN (09:07)
[2017-06-07] MEDS: INSULIN GLARGINE, 100 UNIT/ML CARTRIDGE SQ SCH ×2 (10:34→13:59)
--- NOTE | 2017-06-07 10:36 | NUR ---
NO LANTUS INSULIN DISPENSE VIA PHARMACY PER PYXIS, CALLED AND REQUESTED LANTUS INSULIN X 3.
[2017-06-07 12:15] VITALS: BP 127/74
[2017-06-07] MEDS ORDERED: PRED20TA GT (13:03)
[2017-06-07] MEDS ORDERED: PRED20TA PO (13:03)
[2017-06-07] MEDS ORDERED: ALBU18HF2 INH (13:03)
[2017-06-07] MEDS ORDERED: INSU100I30 SQ (13:03)
[2017-06-07] MEDS ORDERED: LOSA50TA3 PO (13:03)
[2017-06-07] MEDS: *INSULIN REGULAR(HUMULIN R)HUM 100 UNIT/ML VIAL SQ PRN (14:01)
[2017-06-07] MEDS ORDERED: LEVO500T2 PO (15:06)
[2017-06-07 16:00] VITALS: BP 114/70
== END 2017-06-07 17:35 | disposition home or self-care (01) | DRG 177 ==
LOC: ER 15:53 → TELE1 19:00 → MEDSG1 05-31 11:02 → TELE-TD 06-01 17:29 → MEDSG1 06-04 10:00
PROVIDERS: ADMIT Nurse Practitioner Acute Care; ATTEND Nurse Practitioner Acute Care
DX: J11.08 Influenza due to unidentified influenza virus with specified pneumonia (principal); J96.01 Acute respiratory failure with hypoxia; J15.6 Pneumonia due to other Gram-negative bacteria; N17.0 Acute kidney failure with tubular necrosis; E66.2 Morbid (severe) obesity with alveolar hypoventilation; Z68.41 Body mass index [BMI] 40.0-44.9, adult; E87.1 Hypo-osmolality and hyponatremia; J15.9 Unspecified bacterial pneumonia; E86.0 Dehydration; Z83.3 Family history of diabetes mellitus; Z87.891 Personal history of nicotine dependence; D70.9 Neutropenia, unspecified; I35.0 Nonrheumatic aortic (valve) stenosis; I10 Essential (primary) hypertension; J12.9 Viral pneumonia, unspecified; T38.0X5A Adverse effect of glucocorticoids and synthetic analogues, initial encounter; Y92.009 Unspecified place in unspecified non-institutional (private) residence as the place of occurrence of the external cause; R73.9 Hyperglycemia, unspecified
CPT/HCPCS: 36415; 36600; 71045-TC; 80048-TC; 80061-TC; 80076-TC; 82803-TC; 82962-TC; 83605-TC; 83735-TC; 83880; 84100-TC; 84443-TC; 85025-TC; 85730-TC; 86713; 86738; 87040-TC; 87400; 93307-TC; A4606; J0456; J0696; J1650; J1815; J1940; J2920; J2930; J7030; J7050; J7060; Z7610